=== PATIENT | male | born 1955 | race Caucasian/White ===

== ENCOUNTER 2025-01-25 17:09 | Inpatient (IN) | payer BC, MEDICARE ==
[~2025-01-25] VITALS: Ht 175.3 cm; Wt 107.4 kg
[2025-01-25] VITALS (8 sets, daily range): BP systolic 122–151; BP diastolic 66–84; PULSE 59–90; RESP 12–19; O2SAT 95–100
[~2025-01-25 17:09] MED LIST: FLEC100T2 PO; LOP25T PO; METO50TA17 PO
--- NOTE | 2025-01-25 17:14 | ELECTROCARDIOGRAPH REPORT ---
[facility] Test Date: 2025-01-25 Test Time: 17:12:03 Pat Name: EVE KAYE Department: EMERGENCY ROOM Room: [facility] 2013 Gender: M Motion Study Analyst: KIERA : 1955 Requested By: TAYLOR MARTÍNEZ Order Number: [id number] Reading MD: Dr. Adolfo Adam Measurements Intervals [place] Rate: 51 P: 6 FL: 129 QRS: 1 QRSD: 100 T: 72 QT: 427 QTc: 394 Interpretive Statements Sinus bradycardia Inferoposterior infarct, acute (LCx) Lateral infarct, acute Baseline wander in lead(s) V1,V2,V3 Electronically Signed On 01-26-2025 7:40:[address] Adolfo Adam Please click the below link to view image of tracing.
[2025-01-25 17:28] LABS: MEAN PLATELET VOLUME 7.2 FL (7.4-10.4); RED CELL DISTRIBUTION WIDTH 13.3 % (11.5-14.5)
[2025-01-25] MEDS ORDERED: heparin 10,000 units/1 ML INJ IV PRN (17:30)
[2025-01-25] MEDS ORDERED: heparin 25,000 UNIT/250ml bag 250 ML IV PRN (17:30)
--- NOTE | 2025-01-25 17:40 | RADIOLOGY REPORT ---
CLINICAL HISTORY: CP TECHNIQUE: Single view of the chest was obtained. COMPARISON: None FINDINGS: The heart size and pulmonary vasculature are normal. The lungs are clear. IMPRESSION: NO ACUTE CARDIOPULMONARY PROCESS.
[2025-01-25] MEDS ORDERED: verapamil 2.5 mg/ml inj IV ONE (17:44)
[2025-01-25] MEDS ORDERED: LIDOcaine 1% 30ml preserv. free vial ONE (17:45)
[2025-01-25] MEDS ORDERED: midazolam 1 mg/ML 2ml injection ONE ×2 (17:45→18:51)
[2025-01-25] MEDS ORDERED: iohexol 350 MG/ML 50ML vial IV ONE (17:45)
[2025-01-25] MEDS ORDERED: fentaNYL/PF 50MCG/1 ML 2ML syringe ONE ×2 (17:45→18:51)
[2025-01-25] MEDS ORDERED: heparin 1,000unit/ml 10ml vial 10 ML ONE (17:45)
[2025-01-25 17:47] LABS: APTT 24 SECONDS (22-32); INR 1.0 INR
[2025-01-25] MEDS ORDERED: nitroGLYCERIN 500mcg/5mL D5W 5 ML IV ONE (17:48)
[2025-01-25] MEDS ORDERED: mag hydrox/Alum hydrox/simeth 30ml oral suspension PO PRN (17:50)
[2025-01-25] MEDS ORDERED: magnesium hydroxide 30ml (MOM) UD suspension PO PRN (17:50)
[2025-01-25] MEDS ORDERED: morphine 4 MG/ML inj SYRINge IV PRN (17:50)
[2025-01-25] MEDS ORDERED: potassium Cl 40MEQ/1/2NS 520ml 520 ML IV PRN (17:50)
[2025-01-25] MEDS ORDERED: potassium Cl 20 mEq SR tablet PO PRN ×2 (17:50)
[2025-01-25] MEDS ORDERED: magnesium sulf-water 4G/100mL 100 ML IV PRN (17:50)
[2025-01-25] MEDS ORDERED: magnesium Cl slow-release 64mg tablet PO PRN (17:50)
[2025-01-25] MEDS ORDERED: magnesium sulf-water 2g/50mL 50 ML IV PRN (17:50)
[2025-01-25 17:56] LABS: CREATININE 0.99 MG/DL (0.60-1.10); PRO BRAIN NATRIURETIC PEPTIDE 47 PG/ML (0-125); TOTAL CARBON DIOXIDE 27.5 MMOL/L (24-32); eCRCL 71 ML/MIN; eGFR 75 ML/MIN
--- NOTE | 2025-01-25 17:57 | HISTORY AND PHYSICAL-Residence ---
History & Physical Providers to Resident Creating Document: CAESAR CHAPMAN, RES ~ History of Present Illness Primary Medical Doctor: No PCP. 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 Reason for Admit\Complaint: Chest pain History of Present Illness 69-year-old male patient presented to the hospital with chief complaint of chest pain. The patient states that he experienced chest pain approximately 30 minutes previous to arrival to the emergency department, 4/5 in intensity, without radiation, localized in the left side of the chest, described as a pressure type pain. The patient states that she was driving while he started having these symptoms and as soon as he noticed this chest pressure he decided to drive to the hospital. Associated to this chest pressure the patient states nausea. The patient denies shortness of breath, palpitations or diaphoresis. The patient endorses that he experienced these symptoms for the 1st time in his life. Upon arrival to the emergency department, the patient received one dose of nitroglycerin which improved his pain to 1/5 in intensity. The patient does not have a primary care physician. As per patient he usually goes to urgent care if he has any symptoms. Allergies: Coded Allergies: No Known Allergies (Unverified , 06/04/15) Home Medications Home Medications Active Metoprolol Tartrate 50 Mg Tablet 1 Tablet PO BID Flecainide Acetate 100 Mg Tablet 1.5 Tablet PO BID Reported Metoprolol Tartrate 25 Mg Tablet 1 Tablet PO BID Past Medical History Past Medical History As per patient atrial fibrillation for which he received two cardioversions and ablation in 2016. 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) ROS Constitutional: Denies: no symptoms reported, see HPI, chills, diaphoresis, fever, malaise, weakness, other Eyes: Denies: no symptoms reported, see HPI, pain, discharge, blurred vision, double vision, itching, photophobia, redness, tearing, other ENT: Denies: no symptoms reported, see HPI, ear pain, ear bleeding, ear discharge, hearing loss, ear ringing, nose pain, nose bleeding, nose congestion, nose discharge, throat pain, throat swelling, voice change, mouth pain, mouth bleeding, mouth swelling, other Respiratory: Denies: no symptoms reported, see HPI, cough, orthopnea, shortness of breath, SOB with exertion, SOB at rest, stridor, wheezing, hemoptysis, pain with breathing, other Cardiovascular: Reports: see HPI Gastrointestinal: Reports: see HPI Genitourinary: Denies: no symptoms reported, see HPI, burning, discharge, dysuria, frequency, flank pain, hematuria, incontinence, pain, decreased urine output, urgency, other Male Genitalia: Denies: no symptoms reported, see HPI, penile discharge, penile sore, testicular pain, testicular swelling, other Neurological: Denies: no symptoms reported, see HPI, speech problem, headache, dizziness, fainting, tingling, left sided numbness, right sided numbness, left sided weakness, right sided weakness, problems walking, unable to move lower ext, unable to move upper ext, petit mal seizures, tonic-clonic seizures, cognitive dysfunction, other Musculoskeletal: Denies: no symptoms reported, see HPI, pain, swelling, back pain, gout, joint pain, joint swelling, muscle pain, muscle swelling, muscle stiffness, neck pain, other Integumentary: Denies: no symptoms reported, see HPI, rash, itching, lesions, lumps, bruise(s), wound(s), laceration(s), dryness, change in color, other Allergic/Immunologic: Denies: no symptoms reported, see HPI, hives, itching, frequent infections, difficulty healing, other Hematologic/Lymphatic: Denies: no symptoms reported, see HPI, anemia, blood clots, easy bleeding, easy bruising, swollen glands, other Endocrine: Denies: no symptoms reported, see HPI, excessive sweating, flushing, intolerance to cold, intolerance to heat, increased hunger, increased thrist, increased urine, unexplained weight gain, unexplained weight loss, other Psychiatric: Denies: no symptoms reported, see HPI, depression, anxiety, sleeplessness, hopeless, suicidal, hallucinations, other Exam Vitals: Vital Signs Date Time Temp Pulse Resp B/P (MAP) Pulse Ox O2 Delivery O2 Flow Rate FiO2 01/25/25 17:18 98.0 56 16 121/80 94 0 Physical exam: General: Awake, alert, oriented. No acute distress. Well-developed, hydrated and well-built nourished. No anemia, Jaundice or clubbing. HEENT: Conjunctive are pink, sclerae clear, no icterus, pupil is equal in both sides, reactive to light, no ear discharge, no pharyngeal erythema or an edema. Neck: Supple, no adenopathy, thyromegaly. Trachea is midline. No JVD. Chest: Respiratory: Vesicular breath sounds. No ronchi, crepitus or wheezing. Resonance is normal upon percussion of all lung membreno. Cardiovascular: S1-S2 regular sinus rhythm and, regular rate, no gallops, no rubs, no murmurs Abdomen: No visible distention, Bowel sounds present on auscultation, on palpation: soft, nontender, no guarding, no rigidity. Extremities: No obvious deformities, no pitting edema bilaterally, capillary refill intact, peripheral pulsations are intact on both sides Neurologic: Mental status: alert and conscious, oriented to place, person and time, preserved memory, normal speech. Cranial nerves I-XII: Normal. Motor system: Preserved power, coordination, no evidenced involuntary movements, strength 5/5 in four extremities. Negative Babinski. Skin: Warm and dry. Diagnostic Data Last Recorded Lab Results: 01/25/25171601/25/251716 Diagnostic Data: Laboratory Tests Test 01/25/25 17:17 Prothrombin Time 10.5 SECONDS (9.0-12.0) INR International Normalized Ratio 1.0 INR Activated Partial Thromboplast Time 24 SECONDS (22-32) Coagulation Comments Advance Care Planning Advanced Care plannin - 30 Minutes (I spent a total of 17 minutes on reviewing various resuscitative measures/ACP with the patient at the time of admission. The patient has decided on a full code status.) Additional Plan Assessment and plan: 69-year-old male patient presented to the hospital with chief complaint of chest pain. STEMI: The patient presented to the hospital with chief complaint of chest pain, pressure type. EKG: Showing heart rate of 51, sinus rhythm, left axis deviation, ST-elevation in leads two, three, AVF consistent with inferior myocardial infarction. The patient received one dose of aspirin 325 mg. Plan: Follow-up echocardiogram. Follow-up lipid panel and A1c in a.m. Cardiology consulted, the patient has been taken to the optical laboratory manager. H/O AFib: As per patient he got cardioversion and cardiac ablation around 2015. Continue to monitor with telemetry. Code status: Full code DVT prophylaxis: Heparin Analgesia/sedation: Morphine Line/tube: PIV GI prophylaxis: None Nutrition: NPO for procedure PT: Yes Prognosis: Guarded Disposition: The patient will be admitted to PCU with telemetry, currently taken to optical laboratory manager. Caesar Steni Internal Medicine Resident [facility] Date of Service: Jan 25, 2025 Billing Provider: JAZIEL BRASHER MD Common Visit Codes: [id number] INP/OBS CARE (HIGH) Secondary Visit Codes: [id number] CARE PLAN 30 MINUTES CAESAR CHAPMAN, RES Jan 25, 2025 17:57 JAZIEL BRASHER MD Jan 27, 2025 07:38
--- NOTE | 2025-01-25 17:59 | Physician Documentation ---
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 He has no other cardiac history. He denies nausea, vomiting, cough, shortness of breath. In triage he is noted to be diaphoretic. Medication Reconciliation Allergies: Coded Allergies: No Known Allergies (Unverified , 06/04/15) Scheduled Flecainide Acetate (Flecainide Acetate), 1.5 TABLET PO BID Metoprolol Tartrate* (Lopressor tablet*), 1 TABLET PO BID, (Reported) Metoprolol Tartrate* (Metoprolol Tartrate*), 1 TABLET PO BID Past Medical History Past Medical History: Atrial Fibrillation Past Surgical History: no surgical history Alcohol Use: None Drug Use: none Lives with: Family Lives In: Home Review of Systems All Other Systems at this time: Reviewed and Negative Physical Exam Vital Signs: RN Vital Signs have been reviewed: Yes, Temperature: 98.0, Source: Temporal, Heart Rate: 56, Respiratory Rate: 16, BP: 121/80, Pulse Oximetry: 94, Weight: 102.270 Oxygen Flow Rate: 0 Physical Exam HEENT: PERRL, moist oral mucosa, EOMI Pulmonary: No respiratory distress Cardiac: RRR, no murmur, rub or gallop GI: nondistended, soft, nontender, no guarding, no rebound MSK: no deformity Skin: warm, diaphoretic, no rash Neuro: alert, nonfocal Psych: normal affect Progress Results/Orders Results/Orders Orders - TAYLOR MARTÍNEZ MD Chest,Single View (01/25/25 17:21) Monitor (01/25/25 17:11) Saline Lock (01/25/25 17:11) Oxygen (01/25/25 17:11) BMP (01/25/25 17:11) PBNP (01/25/25 17:11) Hs Troponin I W Calculations (01/25/25 17:11) Hs Troponin I W Calculations (01/25/25 19:11) Hs Troponin I W Calculations (01/25/25 20:11) Page Hospitalist (01/25/25 17:24) Nitroglycerin Sublingual Tab (Nitrostat (01/25/25 17:30) Heparin 10,000 Unit/Ml 1ml (Heparin 10,0 (01/25/25 17:30) Cbc/Diff (01/26/25 03:00) Cbc/Diff (01/27/25 03:00) Cbc/Diff (01/28/25 03:00) Cbc/Diff (01/29/25 03:00) Cbc/Diff (01/30/25 03:00) Heparin 25,000 Unit/250ml Bag (Heparin 2 (01/25/25 17:33) Completed Orders - TAYLOR MARTÍNEZ MD Chest,Single View (01/25/25 17:21) Cbc/Diff (01/25/25 17:11) Electrocardiogram (01/25/25 17:11) Aspirin 81mg Chew Tablet (Aspirin 81mg C (01/25/25:25) Heparin Drip Acs*Rph-To-Dose* (Heparin D (01/25/25:) Heparin 10,000 Unit/Ml 1ml (Heparin 10,0 (01/25/25 17:25) Pt Inr (01/25/25 17:29) PTT (01/25/25 17:29) Heparin 10,000 Unit/Ml 1ml (Heparin 10,0 (01/25/25 17:30) Heparin 25,000 Unit/250ml Bag (Heparin 2 (01/25/25 17:30) Message To Nursing (01/25/25 17:35) Verapamil Inj (Verapamil Inj) (01/25/25 17:44) Lidocaine 1% 30ml Vial (Xylocaine 1% Via (01/25/25 17:45) Midazolam 1 Mg/Ml 2ml Inj. (Versed 1 Mg/ (01/25/25 17:45) Fentanyl/Pf (Fentanyl 0.05 Mg/Ml Syringe (01/25/25 17:45) Iohexol 350mg/Ml 50ml Inj (Omnipaque 350 (01/25/25 17:45) Heparin 1,000unit/Ml 10ml Vial (Heparin (01/25/25 17:45) Iohexol 350mg/Ml 100ml (Omnipaque 350mg/ (01/25/25 17:45) Heparin 1,000 Units/Ns 500ml (Heparin 1, (01/25/25 17:45) Nitroglycerin 500mcg/5ml D5w (Nitroglyce (01/25/25 17:48) Medications Received in ER Medications (Trade) Dose Ordered Sig/Clair Route PRN Reason Start Time Stop Time Status Last Admin Dose Admin (aspirin 81MG chew tablet) 324 mg ONCE ONCE PO 01/25/25 17:25 01/25/25 17:26 DC 01/25/25 17:22 324 MG (Nitrostat SL tablet) 0.4 mg ONCE PRN SL chest pain 01/25/25 17:30 01/25/25 17:30 0.4 MG Vital Signs 01/25/25 17:18 Temp 98.0 Pulse 56 Resp 16 B/P (MAP) 121/80 Pulse Ox 94 O2 Flow Rate 0 Laboratory Tests Test 01/25/25 17:17 White Blood Count 8.8 Red Blood Count 4.83 Hemoglobin 15.0 Hematocrit 44.4 Mean Corpuscular Volume 92.0 Mean Corpuscular Hemoglobin 31.1 H Mean Corpuscular Hemoglobin Concent 33.8 Red Cell Distribution Width 13.3 Platelet Count 297 Mean Platelet Volume 7.2 L Neutrophils (%) (Auto) 43.1 Lymphocytes (%) (Auto) 42.4 Monocytes (%) (Auto) 10.8 Eosinophils (%) (Auto) 3.2 Basophils (%) (Auto) 0.5 Neutrophils # (Auto) 3.8 Lymphocytes # (Auto) 3.7 Monocytes # (Auto) 0.9 Eosinophils # (Auto) 0.3 Basophils # (Auto) 0.0 CBC Comment Prothrombin Time 10.5 INR International Normalized Ratio 1.0 Activated Partial Thromboplast Time 24 Coagulation Comments Chemistry Comments EKG/XRAY/CT/US/VASC/MRI EKG : EKG: NSR, ST elevation Additional Comment my interpretation: ST elevations in leads II, III, avF with reciprocal changes in anterior leads = acute ST elevation [place], otherwise normal sinus rhythm without blocks or other dysrhythmias Chest X-Ray : Interpreted By: self Views: 1 VIEW Indication: chest pain Lungs: normal Mediastinum: normal Ribs/Bones: normal Abdomen: normal Impression: no acute disease Medical Decision Making Additional information obtaine: N/A Findings 69 year old male with presentation concerning for STEMI. We immediately called STEMI alert, provided ASA and heparin per Dr. Sanders who was in the ER shortly to evaluate patient. Care transferred to hospitalist and Mr. Torres went immediately to logging rafter laborer after our interventions here in the ER. He required 30 minutes of critical care time apart from separately billable procedures for frequent reassessment, consultation with specialists, IV drip medication administration. The patient remained hemodynamically stable during his ER stay until he went to the logging rafter laborer. Heart Score: 7 Differential Dx:Considerations: Include: angina, aortic dissection, chest wall pain, cholelithiasis, esophageal reflux/spasm, myocardial infarction, pericarditis, pleuritis, pancreatitis, pneumonia, pneumothorax, pulmonary embolus Departure Disposition: 09 ADMITTED INPATIENT Admitted to Inpatient Unit: to hospitalist Admission Level of Care: Med/Surg Impression: Primary Impression: ST elevation TX (STEMI) Condition: Stable Referrals: NO PRIMARY CARE PROVIDER (PCP) Education Educated: Patient Educated regarding: diagnosis, treatment, prognosis, need for follow up Signature Scribe Signature: . Attestation: . TAYLOR MARTÍNEZ MD Jan 25, 2025 17:59
[2025-01-25] MEDS ORDERED: amiodarone/D5 360MG/200ML BAG 200 ML IV ONE (18:05)
--- NOTE | 2025-01-25 18:50 | CONSULTATION REPORT - RESIDENT ---
Consult Providers to CC Resident Creating Document: YAQUELIN RYDER, RES CC: NACHO STEWART MD History of Present Illness Reason for Admit\Complaint: STEMI History of Present Illness A 69-year-old male with PMH of SVT/AFib status post ablation presented to the ED in view of chest pain since 30 minutes. Patient states that he had chest discomfort in the substernal in location 4/10 in severity, pressure-like in character, with no radiation since 30 minutes prior to the ER visit. Patient states that he had associated nausea that was worse, no associated shortness of breath, diaphoresis, palpitations. Patient and his stated that he underwent cardioversions for AFib in 2016, after which he underwent ablation. Per his prior records, patient seems to have had SVT on one episode and atrial fibrillation on one episode. Patient has started to feel better after one dose of sublingual nitroglycerin. Patient received one dose of aspirin 324 mg in the ED. On further evaluation, EKG showed ST elevations in leads II, III, AVF, V6 and reciprocal changes in V1 to V3. STEMI was called, Cardiology was consulted. In view of STEMI, patient was immediately taken to the labor utilization superintendent, patient coded in catheterization lab patient received shock and chest compressions was able to attain circulation within 10 minutes. Patient coded at around 5:50 p.m. and pulse was regained at 06:02 pm. Patient was agitated after he gained consciousness, had to be sedated under the supervision of anesthesiologist for the procedure. Father of massive heart attack at the age of 63, similar history of presentation and events with the paternal uncles. Mother at the age of 70 due to heart failure. 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 No nausea, vomiting, diarrhea, constipation, hematemesis, abdominal pain, bloating, melena or fresh blood Musculoskeletal:chronmic edema. Integumentary: No change in skin, hair, nails. No swelling, bruising, abrasions Neurologic: No headache, neck pain, numbness or tingling of the extremities, weakness Psychiatric: No delusions, depression, loss of interest in normal activity or change in sleep pattern, hallucinations, suicidal ideations Endocrine: No fatigue, weakness, polydipsia, polyuria, change in appetite, heat or cold intolerance, sweating, dry skin Exam Vitals: Vital Signs Date Time Temp Pulse Resp B/P (MAP) Pulse Ox O2 Delivery O2 Flow Rate FiO2 01/25/25 17:18 98.0 56 16 121/80 94 0 General: General: Alert, awake, oriented, not in acute distress HEENT: PERRLA, no icterus, pallor, lymphadenopathy, carotid bruit Respiratory system: Bilateral vesicular breath sounds heard, no adventitious breath sounds CVS: S1-S2 heard, no murmurs/rubs/gallop GI: Soft, nontender, no organomegaly, no guarding/rigidity, bowel sounds present Neuro: No focal neurological deficits present Mental status exam: alert and consciousness, orientation, memory, speech - Cranial nerve test: Cranial nerves 2-12 intact - Motor system: Nutrition, Tone 3+, Power 5/5, no involuntary movements - Sensory system: Intact - Reflex testing: Biceps, triceps and knee reflexes 2+ - Cerebellar: Normal Extremities: No edema cyanosis clubbing/deformities Skin: Warm and dry Diagnostic Data Last Recorded Lab Results: 01/25/25 1717 01/25/25 1717 Diagnostic Data: Laboratory Tests Test 01/25/25 17:17 Prothrombin Time 10.5 SECONDS (9.0-12.0) INR International Normalized Ratio 1.0 INR Activated Partial Thromboplast Time 24 SECONDS (22-32) Coagulation Comments Additional Plan Assessment: A 69-year-old male with a past medical history of AFib/SVT s/p ablation in 2016 presented to the ED in view of chest pain. On further evaluation patient was found to have STEMI. Cardiology was consulted and patient underwent cardiac catheterization. Plan: STEMI s/p cardiac catheterization with stenting on 01/25/2025 EKG: ST elevations in two, three, AVF and V6, with reciprocal in V1 to V3 Chest x-ray: No acute cardiopulmonary findings Initial troponin negative Patient received one dose of aspirin 325 mg. Cardiac catheterization revealed: Stenosis of left circumflex Continue aspirin 81 mg and Brilinta 90 mg b.i.d., 180 mg one time dose now Sublingual nitroglycerin 0.4 mg p.r.n. for chest pain Continue IV heparin through the night Follow up with lipid panel, echo Optimization with GDM T: Carvedilol 6.125 mg b.i.d., atorvastatin 80 mg once daily EKG post catheterization, p.r.n. for chest pain and in a.m. Lifestyle modifications: Weight loss, heart healthy diet. VFib with ROSC in 10 minutes Shocked twice, received amiodarone, two rounds of CPR Continue to monitor vitals AFib/SVT s/p ablation [id number]: 2 Continue home meds Re-evaluate in a.m. for the start of Eliquis Code status: Full code Diet: Heart healthy Anticoagulation: Aspirin, Plavix Disposition: Cardiology team will continue to follow up with the patient, EKG in a.m. Yaquelin Ryder MD Internal Medicine, PGY 2 Patient seen and examined in emergency room. Subsequently underwent coronary angiography. Patient did have code blue prior to angiography resuscitated. Found to have a critical thrombotic mid circ lesion 98% with AMADO two flow successfully angioplastied and stented with 3.5/18 resolute adryan stent and post dilated to 3.75 mm with AMADO three flow. The importance of uninterrupted aspirin and Brilinta at least for one year emphasized to the patient. Sepsis Screening Reassessment Date: Jan 26, 2025 Date of Service: Jan 25, 2025 Billing Provider: NACHO STEWART MD, SIVA, RES Jan 25, 2025 18:49 NACHO STEWART MD Jan 26, 2025 16:08
[2025-01-25] MEDS: ondansetron/PF 4mg/2ml inj IV PRN (19:42)
[2025-01-25] MEDS: docusate sod 100mg capsule PO SCH (20:00)
[2025-01-25] MEDS: K and/or MAG REPLACEMENT MC SCH (20:00)
[2025-01-25] MEDS: morphine 4 MG/ML inj SYRINge IV PRN (20:08)
[2025-01-25] MEDS: heparin 10,000 units/1 ML INJ IV ONE ×2 (20:11→20:14)
[2025-01-25] MEDS: MESSAGE TO NURSING IV ONE (20:13)
[2025-01-25] MEDS: normal saline 1000ml 1,000 ML IV SCH ×2 (20:14→20:41)
[2025-01-25] MEDS: HEPARIN DRIP-CARDIAC**PHARMACIST-TO-DOSE IV ONE (20:14)
--- NOTE | 2025-01-25 20:24 | ELECTROCARDIOGRAPH REPORT ---
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
--- NOTE | 2025-01-25 20:24 | ELECTROCARDIOGRAPH REPORT ---
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 NICOLASA Sanders Measurements Intervals [place] Rate: 86 P: 75 [place]: 184 QRS: 0 QRSD: 98 T: 77 QT: 390 QTc: 467 Interpretive Statements Sinus rhythm Inferoposterior infarct, acute (LCx) ST depression V1-V3, suggest recording posterior leads Electronically Signed On 01-26-2025 16:01:[address] NICOLASA Sanders Please click the below link to view image of tracing.
[2025-01-25] MEDS: heparin 25,000 UNIT/250ml bag 250 ML IV PRN (20:29)
[2025-01-26] VITALS (23 sets, daily range): BP systolic 103–130; BP diastolic 55–70; PULSE 58–69; RESP 13–25; TEMP 97.3–97.7; O2SAT 90–98
[2025-01-26] MEDS: amiodarone/D5 360MG/200ML BAG 200 ML IV SCH (00:11)
[2025-01-26 01:33] LABS: MEAN PLATELET VOLUME 7.0 FL (7.4-10.4); RED CELL DISTRIBUTION WIDTH 13.1 % (11.5-14.5)
[2025-01-26 01:41] LABS: CHOL/HDL RATIO 7.7 (0.00-4.99); CREATININE 0.87 MG/DL (0.60-1.10); LDL CHOLESTEROL 252 MG/DL (50-100); TOTAL CARBON DIOXIDE 27.5 MMOL/L (24-32); eCRCL 81 ML/MIN; eGFR 87 ML/MIN
[2025-01-26] MEDS: MESSAGE TO NURSING IV ONE (04:04)
[2025-01-26] MEDS: magnesium sulf-water 2g/50mL 50 ML IV ONE (04:04)
--- NOTE | 2025-01-26 04:22 | CARDIOLOGY REPORT ---
DATE OF SERVICE: 01/25/2025 DICTATING PHYSICIAN: NICOLASA Sanders MD DATE OF PROCEDURE: 01/25/2025 INSPECTING ENGINEER: NICOLASA Sanders MD GENDER: Male. AGE: 69 HEIGHT: 175 cm WEIGHT: 102 kg BODY SURFACE AREA: 2.1 cm2 INDICATION: The patient is a 69-year-old male with no prior history of diabetes, hypertension, and hyperlipidemia. However, he does not have any primary care physician and does not know his cholesterol level. The patient developed sudden onset of chest pain when he returned after [employer]. He has a history of cardiac ablation around in 2016. No other cardiac history, perspiration, shortness of breath. He came to the emergency room. Immediately he was given aspirin and heparin and went into the cork slabs sawyer. As soon as he got into the cork slabs sawyer, the patient had a VFib arrest. Jeremiah Morrow was called. Chest compression was started immediately. The patient was in VFib, he was cardioverted twice. IV amiodarone and epinephrine were given, and his rhythm came back. Chest compression and immediately the patient proceeded with a cardiac catheterization. The patient did have inferolateral ST elevation. PROCEDURES DONE: 1. An ultrasound-guided right radial artery visualization and access. 2. Left heart catheterization. 3. LVG. 4. Coronary artery cineangiography. 5. PTCA stenting of the mid circumflex artery. FINDINGS: HEMODYNAMICS: Aortic systolic 84, diastolic 42, mean of 49 mmHg. LVEDP of 19 mmHg. There is no significant gradient across the aortic valve. LEFT VENTRICULOGRAM: Overall left ventricular systolic function is normal with an LV ejection fraction of 55-60% and mild inferolateral hypokinesia. CORONARY CINEANGIOGRAPHY: Left main coronary artery is a large caliber vessel with minimal luminal irregularity. LAD is a medium caliber vessel arising at the bifurcation of the left main coronary artery and courses through the anterior intraventricular groove and ends up by wrapping around the apex. Diagonal 1 is a 2 mm caliber with minimal luminal irregularity. Diagonal 2 is a 2.25 mm caliber with minimal luminal irregularity. Otherwise, the LAD is a relatively small Caliber vessel and ends at apex. Circumflex artery is a medium caliber, large vessel. It has a 98% thrombotic occlusion and it predominantly continues as a principal obtuse marginal branch which divides into 3 divisions. Right coronary artery is a medium-caliber vessel arising from the right aortic sinus, courses the right AV groove, ends at the posterior crux by dividing into PDA and a posterolateral branch. The patient has got 3 sequential narrowings in the mid RCA of 30%, 40%, and 60%. PTCA STENTING OF THE MID CIRCUMFLEX ARTERY: A 6-English XP C4 guide was used for support. Lesion crossed with PT2 moderate wire. Lesion was angioplastied with a 2.5 x 12 mm balloon at 10 atmospheres of pressure. The lesion was stented with a 3.5/18 Resolute Ernesto stent postdilated with a 3.75/12 mm noncompliant balloon. There was a mild no flow phenomenon which immediately got corrected with intra coronary nitroglycerin and verapamil. IMPRESSION: A 69-year-old male with an LV ejection fraction of 50% to 60% and mild inferolateral hypokinesia. LVEDP of 19 mmHg with no gradient across the aortic valve. Left main is normal. LAD has lesion with 20%, inimal luminal irregularities. Mid circumflex with 98% plus thrombotic lesion which successfully angioplastied and stented with a 3.5 x 18 mm Resolute Ernesto drug-eluting stent, postdilated to 3.75 mm. Mid RCA with 30%, followed by 40%, followed by 60% narrowing. RECOMMENDATIONS: Continued aggressive coronary artery disease risk factor modification, namely low-fat, low-cholesterol diet maintaining ideal body weight, keeping LDL under 55 mg/dL, and regular exercise program. NICOLASA Sanders MD TID: [id number] RECEIPT: [id number] ANGELIA/DAMON MTDD
--- NOTE | 2025-01-26 07:21 | ELECTROCARDIOGRAPH REPORT ---
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 NICOLASA Stewart Measurements Intervals [place] Rate: 68 P: 86 GA: 187 QRS: -24 QRSD: 104 T: 77 QT: 460 QTc: 490 Interpretive Statements Sinus rhythm Borderline left axis deviation Borderline low voltage, extremity leads ST elevation, consider inferior injury Borderline prolonged QT interval Electronically Signed On 01-26-2025 16:02:[address] NICOLASA Stewart Please click the below link to view image of tracing.
[2025-01-26] MEDS: aspirin 81mg, enteric-coated 1 TAB TABLET.DR PO SCH (08:38)
[2025-01-26] MEDS ORDERED: LIDOcaine 1% W/epiNEPHrine 1:100,000 20ml vial ONE (11:04)
--- NOTE | 2025-01-26 12:24 | PROGRESS NOTE- Residence ---
Progress Note - Resident Providers to CC Resident Creating Document: JHOANJHOAN BARGERCAESAR Hensley, RES ~ Antibiotic Timeout Antibiotic Ordered?: No Subjective The patient has been evaluated at bedside. The patient reports that his symptoms completely resolved. Denies chest pain, shortness of breath, palpitations. Episodes of V-tach reported last night, currently on amiodarone drip. Objective Vital Signs Date Time Temp Pulse Resp B/P (MAP) Pulse Ox O2 Delivery O2 Flow Rate FiO2 01/26/25 08:02 69 16 123/62 (82) 92 Room Air 01/26/25 03:00 98.2 01/25/25 23:00 2.0 Physical exam: General: Awake, alert, oriented. No acute distress. Well-developed, hydrated and well-built nourished. No anemia, Jaundice or clubbing. HEENT: Conjunctive are pink, sclerae clear, no icterus, pupil is equal in both sides, reactive to light, no ear discharge, no pharyngeal erythema or an edema. Neck: Supple, no adenopathy, thyromegaly. Trachea is midline. No JVD. Chest: Respiratory: Vesicular breath sounds. No ronchi, crepitus or wheezing. Resonance is normal upon percussion of all lung membreno. Cardiovascular: S1-S2 regular sinus rhythm and, regular rate, no gallops, no rubs, no murmurs Abdomen: No visible distention, Bowel sounds present on auscultation, on palpation: soft, nontender, no guarding, no rigidity. Extremities: No obvious deformities, no pitting edema bilaterally, capillary refill intact, peripheral pulsations are intact on both sides. Presence of shit in the right groin, no signs of infection or inflammation. Neurologic: Awake, alert, oriented to place person and time, able to wiggle his toes but limited movement of the lower extremities due to the presence of a sheath in the right groin from procedure. Skin: Warm and dry. Result Diagram: 01/26/2511401/26/25114 Coagulation Studies Laboratory Tests Test 01/25/25 17:17 01/25/25 19:00 01/26/25 06:02 Prothrombin Time 10.5 SECONDS (9.0-12.0) INR International Normalized Ratio 1.0 INR Activated Partial Thromboplast Time 24 SECONDS (22-32) Activated Clotting Time 176 SEC (101-148) H APTT (Heparin Protocol) 39 SECONDS (45-60) L Coagulation Comments Assessment Assessment 69-year-old male patient presented to the hospital with chief complaint of chest pain. Plan Plan STEMI: S/p coronary angiogram with stent placement in the left circumflex artery on 01/25/2025: The patient presented to the hospital with chief complaint of chest pain, pressure type. Immediately taken to the cardiac cath technician where he underwent coronary angiogram on 01/25/2025. EKG showed heart rate of 51, sinus rhythm, left axis deviation, ST-elevation in leads two, three, AVF consistent with inferior myocardial infarction. During admission. The patient received one dose of aspirin 325 mg during admission. Echocardiogram showing left ventricular ejection fraction of 65%, RVSP 15 mmHg. Normal left ventricle size and wall thickness. Overall systolic function is normal. Plan: Pending hemoglobin A1c. By Cardiology recommendation aspirin 81 mg daily. Ticagrelor 90 mg b.i.d. Atorvastatin 80 mg daily. Currently on amiodarone drip due to episodes of V-tach. Dyslipidemia: Triglycerides: 54, cholesterol: 317, LDL cholesterol: 252, HDL 41. Plan: Atorvastatin 80 mg daily. Possibly reactive leukocytosis: WBC 13.5 today. Plan: Continue to monitor CBC. H/O AFib: Chads Vasc score: 2 As per patient he got cardioversion and cardiac ablation around 2015. Continue to monitor with telemetry. The patient may require anticoagulation. The patient underwent coronary angiogram. Management as per aircraft instrument repairer. Code status: Full code DVT prophylaxis: Heparin Analgesia/sedation: Morphine Line/tube: PIV GI prophylaxis: None Nutrition: Heart healthy diet PT: Yes Prognosis: Guarded Disposition: The patient is currently in ICU. We will assume care when the patient is downgraded to PCU. Caesar Stein Internal Medicine Resident [facility] Date of Service: Jan 26, 2025 Billing Provider: JAZIEL BRASHER MD Common Visit Codes: [id number] INP/OBS CARE(HIGH) CAESAR CHAPMAN, RES Jan 26, 2025 12:24 JAZIEL BRASHER MD Jan 28, 2025 10:58
[2025-01-26] MEDS: carvedilol 6.25mg tablet PO SCH (12:41)
[2025-01-26] MEDS: OXAZEpam 15mg capsule PO PRN (13:50)
--- NOTE | 2025-01-26 14:16 | CONSULTATION REPORT - RESIDENT ---
Consult Providers to CC Resident Creating Document: EDUARDREZA KIM History of Present Illness Primary Medical Doctor: None Reason for Admit\Complaint: STEMI History of Present Illness This is a 69-year-old male patient who came into the hospital with primary complaints of chest pain. The chest pain began about 30 minutes prior to the arrival to the ED, progressively increased in nature, prominent on the left side of the chest and pressure in type. Due to the progressively worsening nature of the symptoms, he came into the ER and was found to have a STEMI. He has never had prior similar symptoms or prior cardiac interventions. He was taken to the laboratory coordinator immediately and just prior to the intervention, the patient went into VFib and had to be defibrillated twice but then soon went into PEA due to which chest compressions had begun. Within a span of 10 minutes, the patient had ROSC. Due to no compromise in his airway, it was decided to not intubate the patient and the catheterization had begun. He was found to have a complete LCX occlusion which was appropriately stented by Dr. Sanders and was transferred back to the ICU for further monitoring. Allergies: Coded Allergies: No Known Allergies (Unverified , 06/04/15) Home Medications Home Medications Active Metoprolol Tartrate 50 Mg Tablet 1 Tablet PO BID Flecainide Acetate 100 Mg Tablet 1.5 Tablet PO BID Reported Metoprolol Tartrate 25 Mg Tablet 1 Tablet PO BID Past Medical History Past Medical History AFib status post cardioversion and ablation Past Surgical History Surgical History Comment No significant past surgical history Past Social History Social History Comment Lifetime nonsmoker. Denies alcohol or illicit drug abuse. Lives at home with his family. Ambulates independently. ROS ROS As stated above in the HPI, otherwise all systems are reviewed and negative. Exam Vitals: Vital Signs Date Time Temp Pulse Resp B/P (MAP) Pulse Ox O2 Delivery O2 Flow Rate FiO2 01/26/25 12:00 63 20 113/63 (80) 93 Room Air 01/26/25 03:00 98.2 01/25/25 23:00 2.0 General: General: Awake and Alert, no acute distress. HEENT: Conjunctiva pink, Sclera clear, Mucus Membranes moist. Resp: Unlabored. Lungs clear to auscultation bilaterally. Heart: Regular Rate and rhythm, normal S1 and S2 without murmur, rub or gallop. Abdomen: Soft and non tender no organomegaly Extremities: No cyanosis,clubbing or edema. DISTRIBUTION OPERATIONS MANAGER: Alert, oriented x4. No cranial nerve deficits. Troponin nutrition within normal limits. No motor or sensory deficits. No abnormal movements. Skin: Warm and Dry. Diagnostic Data Last Recorded Lab Results: 01/26/25 01101/26/25 0115 Diagnostic Data: Laboratory Tests Test 01/25/25 17:17 01/26/25 06:02 01/26/25 10:03 Prothrombin Time 10.5 SECONDS (9.0-12.0) INR International Normalized Ratio 1.0 INR Activated Partial Thromboplast Time 24 SECONDS (22-32) APTT (Heparin Protocol) 39 SECONDS (45-60) L Coagulation Comments Activated Clotting Time 124 SEC (101-148) Additional Plan 1. STEMI status post PCI: Initial EKG revealed ST elevations in two three AVF with reciprocal ST depressions in anterior leads between V1 to V3 Occluded LCX On aspirin 81 mg and Brilinta 90 mg b.i.d.. Atorvastatin 80 mg daily. NTG p.r.n. 0.4 mg for chest pain. Coreg 6.25 mg b.i.d. Chest pain resolved since procedure Continue telemetry monitoring 2. VFib and cardiac arrest: Resolved Status post two cycles of BLS to ROSC Secondary to acute ischemic heart disease Two episodes of 15 sec V-tach last night, self-limited On amiodarone drip. Unlikely to require long-term amiodarone drip as per Cardiology Currently in sinus rhythm with a occasional asymptomatic bradycardia 3. Hyperlipidemia: Total cholesterol 317, LDL 252 Goal less than 70 On atorvastatin 80 mg daily Disposition: Continue management as per cardiology team and hospitalist team. Patient was transferred to ICU due to cardiac arrest and for close monitoring. He has remained stable overnight with no acute complications. The sheath has been removed today afternoon after ACT came out to be normal. Hence, heparin was also discontinued. Amiodarone also has been discontinued. Patient can be transferred out of ICU to the floor when cardiology team clears. Lines: PIV Code status: Full code Diet: Heart healthy Annemarie Atkins PGY3, Internal medicine resident Date of Service: Jan 26, 2025 Billing Provider: KAILA MAYNARD MD, DEEPANJALI, REZA Jan 26, 2025 14:16
--- NOTE | 2025-01-26 16:09 | PROGRESS NOTE- Residence ---
Progress Note - Resident Providers to CC Resident Creating Document: PRINCE RYDER RES CC: NACHO STEWART MD ~ Antibiotic Timeout Antibiotic Ordered?: Yes Subjective The patient has been evaluated at bedside. Patient had four beats of V-tach around this morning at 3:00 a.m. patient was started on IV amiodarone drip. The femoral sheath was taken out today. Objective Vital Signs Date Time Temp Pulse Resp B/P (MAP) Pulse Ox O2 Delivery O2 Flow Rate FiO2 01/26/25 12:00 63 20 113/63 (80) 93 Room Air 01/26/25 03:00 98.2 01/25/25 23:00 2.0 Result Diagram: 01/26/2511401/26/25 011 General: Alert, awake, oriented, not in acute distress HEENT: PERRLA, no icterus, pallor, lymphadenopathy, carotid bruit Respiratory system: Bilateral vesicular breath sounds heard, no adventitious breath sounds CVS: S1-S2 heard, no murmurs/rubs/gallop GI: Soft, nontender, no organomegaly, no guarding/rigidity, bowel sounds present Neuro: No focal neurological deficits present Mental status exam: alert and consciousness, orientation, memory, speech - Cranial nerve test: Cranial nerves 2-12 intact - Motor system: Nutrition, Tone 3+, Power 5/5, no involuntary movements - Sensory system: Intact - Reflex testing: Biceps, triceps and knee reflexes 2+ - Cerebellar: Normal Extremities: Site of femoral approach investigated-clean and intact, no hematoma. No edema cyanosis clubbing/deformities Skin: Warm and dry Coagulation Studies Laboratory Tests Test 01/25/25 17:17 01/26/25 06:02 01/26/25 10:03 Prothrombin Time 10.5 SECONDS (9.0-12.0) INR International Normalized Ratio 1.0 INR Activated Partial Thromboplast Time 24 SECONDS (22-32) APTT (Heparin Protocol) 39 SECONDS (45-60) L Coagulation Comments Activated Clotting Time 124 SEC (101-148) Assessment Assessment A 69-year-old male with a past medical history of AFib/SVT s/p ablation in 2016 presented to the ED in view of chest pain. On further evaluation patient was found to have STEMI. Cardiology was consulted and patient underwent cardiac catheterization. Patient coded before the procedure in the labview programmer with resuscitation within 10 minutes. Patient had four rounds of V-tach this morning. Plan Plan STEMI s/p cardiac catheterization with stenting on 01/25/2025 EKG on admission: ST elevations in II, III, AVF, V5, V6, with reciprocal in V1 to V3 EKG on 01/26/2025: Normal sinus rhythm, ST elevations resolved Echo: EF: 65%, Continue aspirin 81 mg and Brilinta 90 mg b.i.d. Sublingual nitroglycerin 0.4 mg p.r.n. for chest pain Optimization with GDM T: Carvedilol 6.125 mg b.i.d., atorvastatin 80 mg once daily Lifestyle modifications: Weight loss, heart healthy diet, exercise Outpatient cardiology follow up, repeat echo in two months VFib with ROSC in 10 minutes Episode of V-tach (4 runs) IV amiodarone, discontinue after this packet is done Continue to monitor magnesium, maintain magnesium levels greater than two Continue to monitor vitals AFib/SVT s/p ablation [id number]: 2 Continue home meds Code status: Full code Diet: Heart healthy Anticoagulation: Aspirin, Plavix DVT prophylaxis: Eliquis Disposition: Cardiology team will continue to follow up with the patient rPince Ryder MD Internal Medicine, PGY 2 Date of Service: Jan 26, 2025 Billing Provider: NACHO STEWART MD, SIVA, RES Jan 26, 2025 16:09 NACHO STEWART MD Jan 26, 2025 16:22
--- NOTE | 2025-01-26 16:11 | PROGRESS NOTE ---
Progress Note Cardiology Providers to CC ~ Subjective Subjective Patient seen and examined this morning and afternoon. The sheath was removed this morning. No right groin hematoma. Patient having no chest pain or shortness of breath. Objective Result Diagram: 01/26/2511401/26/25114 Objective General: Normal body habitus, no acute distress, HEENT: Sclerae clear, PERRL, gums without lesions or bleeding, oropharynx clear without erythema or exudate. Neck: Supple without enlargement of the thyroid, or lymphadenopathy, Chest: Normal size and shape, no tenderness, nonlabored breathing, Breath sounds clear to auscultation. Heart: Regular in rate and rhythm, S1 and S2 normal, no S3-S4 or murmurs. Abdomen: Soft, nontender, no organomegaly, bowel sounds present. Extremities: No edema cyanosis or clubbing. Coagulation Studies Laboratory Tests Test 01/25/25 17:17 01/26/25 06:02 01/26/25 10:03 Prothrombin Time 10.5 SECONDS (9.0-12.0) INR International Normalized Ratio 1.0 INR Activated Partial Thromboplast Time 24 SECONDS (22-32) APTT (Heparin Protocol) 39 SECONDS (45-60) L Coagulation Comments Activated Clotting Time 124 SEC (101-148) Problem\Assessment\Plan Additional Plan 1. STEMI s/p cardiac catheterization with stenting on 01/25/2025 EKG: ST elevations in two, three, AVF and V6, with reciprocal in V1 to V3 Chest x-ray: No acute cardiopulmonary findings Initial troponin negative Coronary angiography showed left main normal, lad mild disease, mid circumflex 98% thrombotic occlusion Successfully angioplastied and stented with 3.5/18 resolute adryan stent post dilated 3.75 mm with AMADO three flow. RCA moderate disease. Importance of uninterrupted aspirin and Brilinta at least for any emphasized to the patient. 2. VFib prior to coronary angiography, cardioverted. Short nonsustained VT in a.m. treated with IV magnesium sulfate. No recurrence. Keep magnesium above two continue beta blockers IV amiodarone will be stopped. No plans to give p.o. amiodarone unless there is recurrence of arrhythmias. 3. History of AFib/SVT s/p ablation No recurrence since ablation. 4.? Hyperlipidemia recommend statins. Patient counseled on diet weight loss and exercise program. Follow up with Dr. Ella SANTA in 1-2 months. NACHO STEWART MD Jan 26, 2025 16:11
[2025-01-26] MEDS ORDERED: NO HOME MEDS (16:56)
--- NOTE | 2025-01-26 16:56 | CARDIOLOGY REPORT ---
APPROVED REPORT EXAM: Comprehensive 2D, Doppler, and color-flow Echocardiogram. Patient Location: 2014A Blood Pressure: 115/59 mmHg Heart Rate: 70 bpm Indications Chest Pain S/P Angioplasty w/Stent x 1, (01/25/25) S/P CODE BLUE (01/25/25) Ablation (2013) Atrial Fibrillation WARM IN: BV. Marilyn MD NO Previous ECHO 2D Dimensions LA Diam 2.7 cm IVSd 1.1 (0.7-1.1cm) LVDd 3.9 cm PWd 0.9 (0.7-1.1cm) IVSs 1.3 (0.8-1.2cm) LVDs 2.5 (2.5-4.0cm) PWs 1.2 (0.8-1.2cm) LVOT Diameter 2.24 (1.8-2.4cm) LVEF(%) 65.6 (>50%) Ao Asc Diam. 3.23 cm IVC 15.04 mm FS (%) 35.5 % SV 42.4 ml CO 3.0 L/min M-Mode Dimensions Left Atrium(MM) 3.89 (2.5-4.0cm) Aortic Root 3.30 (2.2-3.7cm) Aortic Cusp Exc 2.17 (1.5-2.0cm) MV EPSS 0.3 (<0.5cm) Aortic Valve AoV Peak Ishaan. 120.8 cm/s AoV VTI 23.6 cm AO Peak GR. 5.8 mmHg AO Mean GR. 4 mmHg LVOT VTI 22.25 cm LVOT Peak Ishaan. 103.5 cm/s SAPNA(VTI)/BSA 3.72 cm2/m2 SAPNA (VTI) 3.72 cm2 AV DI 0.94 % Mitral Valve MV E Velocity 87.6 cm/s MV Peak Gr. 3 mmHg MV DECEL TIME 188 ms MV A Velocity 57.8 cm/s MV PHT 72 ms E/A Ratio 1.5 MVA (PHT) 3.06 cm2 MV VMax 83.9 cm/s TDI Lateral E' P. V 9.59 cm/s E/Lateral E' 9.1 Tricuspid Valve TR P. Velocity 107 cm/s RAP ESTIMATE 10 mmHg TR Peak Gr. 5 mmHg RVSP 15 mmHg LEFT VENTRICLE Normal LV size and wall thickness. Overall systolic function is normal. LVEF is 65%. RIGHT VENTRICLE RV is normal size and function. ATRIA The left atrium size is normal. AORTIC VALVE Trileaflet AV appears mildly sclerotic without stenosis. No insufficiency. MITRAL VALVE Mitral valve leaflets are mildly thickened with mild annular calcification. No stenosis. TRICUSPID VALVE Tricuspid valve is grossly normal in structure with trace regurgitation. PULMONIC VALVE Pulmonic valve is grossly normal in structure with physiologic insufficiency. GREAT VESSELS The aortic root is normal in size. The ascending aorta is normal in size. The IVC is normal in size and collapses >50% with inspiration. PERICARDIUM Normal pericardium. No effusion. Other Information Study Quality: Adequate
[2025-01-27 02:00] VITALS: BP 118/66; PULSE 70; RESP 23; TEMP 97.7; O2SAT 95
[2025-01-27 06:00] VITALS: BP 110/67; PULSE 67; RESP 14; TEMP 97.2; O2SAT 94
[2025-01-27 06:46] LABS: MEAN PLATELET VOLUME 7.5 FL (7.4-10.4); RED CELL DISTRIBUTION WIDTH 13.7 % (11.5-14.5)
[2025-01-27 07:07] LABS: CREATININE 0.84 MG/DL (0.60-1.10); TOTAL CARBON DIOXIDE 29.8 MMOL/L (24-32); eCRCL 84 ML/MIN; eGFR > 90 ML/MIN
[2025-01-27 08:15] VITALS: RESP 16; O2SAT 94
[2025-01-27] MEDS ORDERED: CARV6.253 PO (08:45)
[2025-01-27] MEDS ORDERED: ASPI-1071 PO (08:45)
[2025-01-27] MEDS ORDERED: APIX5TAB3 PO (08:45)
[2025-01-27] MEDS ORDERED: TICA90TA PO (08:45)
[2025-01-27] MEDS ORDERED: PANT-47 PO (08:45)
[2025-01-27] MEDS ORDERED: ATOR20TA66 PO (08:45)
[2025-01-27] MEDS ORDERED: MAGN500C4 PO (08:45)
[2025-01-27] MEDS ORDERED: NITR0.4T51 SL (08:45)
[2025-01-27 11:00] VITALS: BP 106/62; PULSE 66; RESP 14; TEMP 97.5; O2SAT 95
--- NOTE | 2025-01-27 18:05 | DISCHARGE SUMMARY-Residence ---
Discharge Summary Providers to CC Resident Creating Document: JUVENAL DUDLEY RES ~ Discharge Summary Admission Diagnosis: Chest pain Hospital Course DATE OF ADMISSION: 01/25/25 DATE OF DISCHARGE:01/27/25 Imaging- Chest x-ray- NO ACUTE CARDIOPULMONARY PROCESS. Echocardiogram- LEFT VENTRICLE Normal LV size and wall thickness. Overall systolic function is normal. LVEF is 65%. RIGHT VENTRICLE RV is normal size and function. ATRIA The left atrium size is normal. AORTIC VALVE Trileaflet AV appears mildly sclerotic without stenosis. No insufficiency. MITRAL VALVE Mitral valve leaflets are mildly thickened with mild annular calcification. No stenosis. TRICUSPID VALVE Tricuspid valve is grossly normal in structure with trace regurgitation. PULMONIC VALVE Pulmonic valve is grossly normal in structure with physiologic insufficiency. GREAT VESSELS The aortic root is normal in size. The ascending aorta is normal in size. The IVC is normal in size and collapses >50% with inspiration. PERICARDIUM Normal pericardium. No effusion. Discharge Diagnosis\Comment: STEMI H/O AFib Dyslipidemia reactive leukocytosis Operations\Procedures: Cardiac catheterization and stent placement. Consultants: Cardiology Complications: None Condition on DC: Stable New Medications: Magnesium Oxide (Magnesium) 500 Mg Capsule 500 MG PO DAILY for 30 Days, #30 CAP Pantoprazole Sodium (PROTONIX tablet) 40 Mg Tablet.dr 40 MG PO DAILY for 14 Days, #14 TAB.SR Apixaban (Eliquis) 5 Mg Tablet 5 MG PO BID, #60 TAB Aspirin (Ecotrin*) 81 Mg Tablet.dr 1 TAB PO DAILY, #30 TAB.SR 1 Refill Atorvastatin Calcium (Atorvastatin Calcium) 20 Mg Tablet 80 MG PO DAILY, #120 TAB 1 Refill Carvedilol (Carvedilol) 6.25 Mg Tablet 6.25 MG PO BID, #60 TAB Nitroglycerin SL* (Nitrostat SL*) 0.4 Mg Tablet 0.4 MG SL ONCE PRN for chest pain, #7 TAB Ticagrelor (Brilinta) 90 Mg Tablet 90 MG PO BID, #60 TAB 1 Refill Continued Medications: Home Med List (No Home Medications) Each Discharge Summary: 69-year-old male patient presented to the hospital with chief complaint of chest pain. The patient stated that he experienced chest pain approximately 30 minutes previous to arrival to the emergency department, 4/5 in intensity, without radiation, localized in the left side of the chest, described as a pressure type pain. The patient stated that he was driving while he started having these symptoms and as soon as he noticed this chest pressure he decided to drive to the hospital. Associated to this chest pressure the patient states nausea. The patient denies shortness of breath, palpitations or diaphoresis. The patient endorses that he experienced these symptoms for the 1st time in his life. Upon arrival to the emergency department, the patient received one dose of nitroglycerin which improved his pain to 1/5 in intensity. Course during the hospital stay- Patient was diagnosed with STEM for which he was immediately taken to the [facility] where he underwent coronary angiogram on 01/25/2025. EKG showed heart rate of 51, sinus rhythm, left axis deviation, ST-elevation in leads two, three, AVF consistent with inferior myocardial infarction. During admission.The patient received one dose of aspirin 325 mg during admission. Echocardiogram showing left ventricular ejection fraction of 65%, RVSP 15 mmHg. Normal left ventricle size and wall thickness. Overall systolic function is normal. Patient had an episode of V-tach(4 runs) the next day for which Cardiology recommended IV amiodarone drip. And recommended to maintain his magnesium levels greater than 2. Which the patient did maintain during his hosp ital stay. As per cardiology recommendations we continued aspirin 81 mg and Brilinta 90 mg b.i.d. Sublingual nitroglycerin 0.4 mg p.r.n. for chest pain Optimization with GDM T: Carvedilol 6.125 mg b.i.d., atorvastatin 80 mg once daily Lifestyle modifications weight loss, exercise was discussed with the patient and the patient was advised outpatient cardiology follow-up and repeat echo in 2 months. Patient's condition improved significantly during the hospital stay. He denied any other complaints of chest pain, shortness of breath, palpitations. Patient was stable at the time of discharge. Vital Signs Date Time Temp Pulse Resp B/P (MAP) Pulse Ox O2 Delivery O2 Flow Rate FiO2 01/27/25 11:00 97.5 66 14 106/62 (77) 95 Room Air 01/27/25 08:15 2.0 Laboratory Tests Test 01/25/25 18:33 01/25/25 19:00 01/26/25 01:15 01/26/25 06:02 Activated Clotting Time 135 SEC 176 SEC White Blood Count 13.5 X10'3 Red Blood Count 4.23 X10'6 Hemoglobin 13.5 g/dl Hematocrit 38.7 % Mean Corpuscular Volume 91.4 FL Mean Corpuscular Hemoglobin 31.8 PG Mean Corpuscular Hemoglobin Concent 34.8 g/dL Red Cell Distribution Width 13.1 % Platelet Count 234 X10'3 Mean Platelet Volume 7.0 FL Neutrophils (%) (Auto) 88.2 % Lymphocytes (%) (Auto) 5.4 % Monocytes (%) (Auto) 6.1 % Eosinophils (%) (Auto) 0 % Basophils (%) (Auto) 0.3 % Neutrophils # (Auto) 11.9 X10'3 Lymphocytes # (Auto) 0.7 X10'3 Monocytes # (Auto) 0.8 X10'3 Eosinophils # (Auto) 0.0 X10'3 Basophils # (Auto) 0.0 X10'3 CBC Comment APTT (Heparin Protocol) 96 SECONDS 39 SECONDS Coagulation Comments Sodium Level 138 MMOL/L Potassium Level 4.8 MMOL/L Chloride Level 105 MMOL/L Carbon Dioxide Level 27.5 MMOL/L Anion Gap 6 Blood Urea Nitrogen 18 MG/DL Creatinine 0.87 MG/DL Estimated GFR/1.73 m2 87 ML/MIN BUN/Creatinine Ratio 20.7 Glucose Level 158 MG/DL Calcium Level 7.7 MG/DL Magnesium Level 1.8 MG/DL Total Bilirubin 0.3 MG/DL Aspartate Amino Transf (AST/SGOT) 179 U/L Alanine Aminotransferase (ALT/SGPT) 71 U/L Alkaline Phosphatase 57 IU/L Total Protein 6.6 G/DL Albumin 3.2 G/DL Globulin 3.4 G/DL Albumin/Globulin Ratio 0.9 Triglycerides Level 54 MG/DL Cholesterol Level 317 MG/DL LDL Cholesterol 252 MG/DL HDL Cholesterol 41 MG/DL Cholesterol/HDL Ratio 7.7 Chemistry Comments Test 01/26/25 09:05 01/26/25 10:03 01/27/25 05:56 Magnesium Level 2.5 MG/DL 2.6 MG/DL Activated Clotting Time 124 SEC White Blood Count 10.2 X10'3 Red Blood Count 3.91 X10'6 Hemoglobin 12.4 g/dl Hematocrit 36.0 % Mean Corpuscular Volume 92.1 FL Mean Corpuscular Hemoglobin 31.7 PG Mean Corpuscular Hemoglobin Concent 34.4 g/dL Red Cell Distribution Width 13.7 % Platelet Count 191 X10'3 Mean Platelet Volume 7.5 FL Neutrophils (%) (Auto) 76.3 % Lymphocytes (%) (Auto) 13.9 % Monocytes (%) (Auto) 9.5 % Eosinophils (%) (Auto) 0.1 % Basophils (%) (Auto) 0.2 % Neutrophils # (Auto) 7.8 X10'3 Lymphocytes # (Auto) 1.4 X10'3 Monocytes # (Auto) 1.0 X10'3 Eosinophils # (Auto) 0.0 X10'3 Basophils # (Auto) 0.0 X10'3 CBC Comment Sodium Level 140 MMOL/L Potassium Level 4.4 MMOL/L Chloride Level 106 MMOL/L Carbon Dioxide Level 29.8 MMOL/L Anion Gap 4 Blood Urea Nitrogen 18 MG/DL Creatinine 0.84 MG/DL Estimated GFR/1.73 m2 > 90 ML/MIN BUN/Creatinine Ratio 21.4 Glucose Level 116 MG/DL Hemoglobin A1c 5.7 % Calcium Level 7.8 MG/DL Total Bilirubin 1.2 MG/DL Aspartate Amino Transf (AST/SGOT) 197 U/L Alanine Aminotransferase (ALT/SGPT) 71 U/L Alkaline Phosphatase 49 IU/L Total Protein 6.2 G/DL Albumin 2.9 G/DL Globulin 3.3 G/DL Albumin/Globulin Ratio 0.9 Chemistry Comments Physical examination of the patient during the time of discharge- General: Awake, alert, oriented. No acute distress. Well-developed, hydrated and well-built nourished. No anemia, Jaundice or clubbing. HEENT: Conjunctive are pink, sclerae clear, no icterus, pupil is equal in both sides, reactive to light, no ear discharge, no pharyngeal erythema or an edema. Neck: Supple, no adenopathy, thyromegaly. Trachea is midline. No JVD. Chest: Respiratory: Vesicular breath sounds. No ronchi, crepitus or wheezing. Resonance is normal upon percussion of all lung membreno. Cardiovascular: S1-S2 regular sinus rhythm and, regular rate, no gallops, no rubs, no murmurs Abdomen: No visible distention, Bowel sounds present on auscultation, on palpation: soft, nontender, no guarding, no rigidity. Extremities: No obvious deformities, no pitting edema bilaterally, capillary refill intact, peripheral pulsations are intact on both sides Neurologic: Mental status: alert and conscious, oriented to place, person and time, preserved memory, normal speech. Cranial nerves I-XII: Normal. Motor system: Preserved power, coordination, no evidenced involuntary movements, strength 5/5 in four extremities. Negative Babinski. Skin: Warm and dry. Medications given to the patient at the of discharge- New Medications: Magnesium Oxide (Magnesium) 500 Mg Capsule Pantoprazole Sodium (PROTONIX tablet) 40 Mg Tablet. Apixaban (Eliquis) 5 Mg Tablet Aspirin (Ecotrin*) 81 Mg Tablet. Atorvastatin Calcium 20 Mg Tablet Carvedilol 6.25 Mg Tablet Nitroglycerin SL* (Nitrostat SL*) 0.4 Mg Tablet Ticagrelor (Brilinta) 90 Mg Tablet Continued Medications: Home Med List (No Home Medications) Each Additional instructions by the doctor at the of discharge- You had stent placed in the left circumflex artery and you will require uninterrupted anticoagulation with Brilinta and aspirin until you follow up with your compliance review officer Dr Sanders. Importance of uninterrupted aspirin and Brilinta emphasized. Follow up with Dr. Ella SANTA in 1-2 months. Continue statins and magnesium. Continue the medications as prescribed, if condition worsens call 911 or go to the nearest ER immediately. *Problems/Diagnosis: (1) NSTEMI (non-ST elevated myocardial infarction) Total Time Spent on D/C: > 30 Minutes Date of Service: Jan 27, 2025 Billing Provider: JAZIEL BRASHER MD Common Visit Codes: 23657-LUQ/OBS DISCH DAY >30min JUVENAL DUDLEY, REZA Jan 27, 2025 18:05 JAZIEL BRASHER MD Jan 28, 2025 11:00
== END 2025-01-27 15:35 | disposition home or self-care (01) | DRG 321 ==
LOC: ER 17:09 → CICU 2S 17:52 → PCU 3S 01-26 20:04
PROVIDERS: ADMIT Internal Medicine; ATTEND Internal Medicine
PROC: 5A12012 Performance of Cardiac Output, Single, Manual (ICD-10-PCS; 2025-01-25)
PROC: 4A023N7 Measurement of Cardiac Sampling and Pressure, Left Heart, Percutaneous Approach (ICD-10-PCS; 2025-01-25)
PROC: B2111ZZ Fluoroscopy of Multiple Coronary Arteries using Low Osmolar Contrast (ICD-10-PCS; 2025-01-25)
PROC: B2151ZZ Fluoroscopy of Left Heart using Low Osmolar Contrast (ICD-10-PCS; 2025-01-25)
PROC: 027034Z Dilation of Coronary Artery, One Artery with Drug-eluting Intraluminal Device, Percutaneous Approach (ICD-10-PCS; principal; 2025-01-25 18:10)
DX: I21.29 ST elevation (STEMI) myocardial infarction involving other sites (principal); I46.2 Cardiac arrest due to underlying cardiac condition; I49.01 Ventricular fibrillation; I47.20 Ventricular tachycardia, unspecified; I48.91 Unspecified atrial fibrillation; E78.5 Hyperlipidemia, unspecified; Z79.899 Other long term (current) drug therapy
CPT/HCPCS: 92950; 93306; 93458; 99285; C9606; 36415; 71045; 76937; 80048; 80053; 80061; 83036; 83735; 83880; 84484; 85025; 85347; 85610; 85730; 87081; 93005; 99152; 99153; A4618; A6258; A6449; C1725; C1751; C1769; C1874; G0378; J0282; J1644; J2003; J2250; J2270; J2405; J3010; J3490; J7030; Q9967

== ENCOUNTER 2025-03-20 17:53 | Emergency (ER) | payer MEDICARE, OTHER ==
[~2025-03-20] VITALS: Ht 175.3 cm; Wt 96.8 kg
[~2025-03-20 17:53] MED LIST changes: +APIX5TAB3 PO; +ASPI-1071 PO; +ATOR20TA66 PO; +CARV6.253 PO; -FLEC100T2 PO; -LOP25T PO; +MAGN500C4 PO; -METO50TA17 PO; +NITR0.4T51 SL; +NO HOME MEDS; +PANT-47 PO; +TICA90TA PO
--- NOTE | 2025-03-20 18:05 | ELECTROCARDIOGRAPH REPORT ---
[facility] Test Date: 2025-03-20 Test Time: 18:04:06 Pat Name: EVE KAYE Department: [facility]-ER Patient ID: [facility]-[id number] Room: Gender: M [employer] Work[employer] Helper: : 1955 Requested By: KAT BHAKTA Order Number: [id number] Reading MD: Measurements Intervals [place] Rate: 59 P: 24 WY: 129 QRS: -38 QRSD: 105 T: -35 QT: 403 QTc: 400 Interpretive Statements Sinus bradycardia Left axis deviation Low voltage, precordial leads Nonspecific T abnormalities, inferior leads Baseline wander in lead(s) I,II,aVR Please click the below link to view image of tracing.
--- NOTE | 2025-03-20 18:32 | RADIOLOGY REPORT ---
CHEST RADIOGRAPH INDICATION: CP TECHNIQUE: DI CHEST,SINGLE VIEW Comparison: None FINDINGS: The cardiac silhouette is unremarkable. The lungs demonstrate no pulmonary airspace consolidation. The pulmonary vasculature is unremarkable. There is no pleural effusion. There is no pneumothorax. Aortic atherosclerotic disease. IMPRESSION: No pulmonary airspace consolidation.
[2025-03-20 19:18] LABS: MEAN PLATELET VOLUME 7.7 FL (7.4-10.4); RED CELL DISTRIBUTION WIDTH 14.7 % (11.5-14.5)
[2025-03-20 19:37] LABS: CREATININE 1.06 MG/DL (0.60-1.10); PRO BRAIN NATRIURETIC PEPTIDE 1021 PG/ML (0-125); TOTAL CARBON DIOXIDE 31.9 MMOL/L (24-32); eCRCL 67 ML/MIN; eGFR 69 ML/MIN
--- NOTE | 2025-03-20 19:53 | Physician Documentation ---
History of Present Illness ~ Chief Complaint: Chest Pain Stated Complaint: CHEST PAIN Time Seen by MD: 19:50 Primary Medical Doctor: None HPI Patient presents to the emergency room for evaluation of chest pain. Patient has history of coronary artery disease with stent placement this past January after codeine. He states the pain today did not feel the same as the pain at that time. Patient states she was sitting watching TV and again in the car when he noticed some right lower chest pain radiating into his back. No current symptoms. Medication Reconciliation Allergies: Coded Allergies: No Known Allergies (Unverified , 06/04/15) Scheduled Apixaban (Eliquis), 5 MG PO BID Aspirin (Ecotrin*), 1 TAB PO DAILY Atorvastatin Calcium (Atorvastatin Calcium), 80 MG PO DAILY Carvedilol (Carvedilol), 6.25 MG PO BID Magnesium Oxide (Magnesium), 500 MG PO DAILY Pantoprazole Sodium (PROTONIX tablet), 40 MG PO DAILY Ticagrelor (Brilinta), 90 MG PO BID Scheduled PRN Nitroglycerin SL* (Nitrostat SL*), 0.4 MG SL ONCE PRN for chest pain Miscellaneous Medications Home Med List (No Home Medications), (Reported) Past Medical History Past Medical History: Atrial Fibrillation Past Surgical History: no surgical history Patient History: FH: CHF (congestive heart failure) MOTHER (Mother with a heart failure at the age of 70s), , Age: 60 years and older FH: heart attack FATHER (Father at the age of 5353 year old due to heart attack), , Age: 50's - 60 Alcohol Use: None Drug Use: none Lives with: Family Lives In: Home Occupation: retired Review of Systems ROS All review of systems negative except as per HPI Physical Exam Vital Signs: Temperature: 98.3, Source: Oral, Heart Rate: 60, Respiratory Rate: 16, BP: 149/79, Pulse Oximetry: 100, Weight: 96.800 Oxygen Flow Rate: 0 Physical Exam General: Patient is awake, alert, oriented x4 in no acute distress and well appearing.~ Head: Normocephalic and atraumatic. Eyes: Conjunctival normal. EOMI. PERRL. ENT: Mucous membranes moist. Neck: Supple, trachea is midline. Chest: Clear to auscultation bilaterally without rales, rhonchi, or wheezes. There is no accessory muscle use or retractions. Cardiac: RRR without murmurs, gallops, or rubs. Progress Results/Orders Results/Orders Completed Orders - LOPEZ DYER MD Apixaban 2.5mg Tablet (Eliquis 2.5mg Tab (03/20/25 20:05) Ticagrelor Tablet (Brilinta Tablet) (03/20/25 20:05) Vital Signs 03/20/25 17:58 Temp 98.3 Pulse 60 Resp 16 B/P (MAP) 149/79 Pulse Ox 100 O2 Flow Rate 0 Laboratory Tests Test 03/20/25 18:41 03/20/25 20:10 White Blood Count 6.1 Red Blood Count 4.20 L Hemoglobin 12.8 L Hematocrit 38.5 L Mean Corpuscular Volume 91.6 Mean Corpuscular Hemoglobin 30.5 Mean Corpuscular Hemoglobin Concent 33.3 Red Cell Distribution Width 14.7 H Platelet Count 263 Mean Platelet Volume 7.7 Neutrophils (%) (Auto) 50.8 Lymphocytes (%) (Auto) 28.6 Monocytes (%) (Auto) 10.2 Eosinophils (%) (Auto) 9.7 H Basophils (%) (Auto) 0.7 Neutrophils # (Auto) 3.1 Lymphocytes # (Auto) 1.7 Monocytes # (Auto) 0.6 Eosinophils # (Auto) 0.6 Basophils # (Auto) 0.0 CBC Comment Sodium Level 140 Potassium Level 4.6 Chloride Level 104 Carbon Dioxide Level 31.9 Anion Gap 4 L Blood Urea Nitrogen 15 Creatinine 1.06 Estimated GFR/1.73 m2 69 BUN/Creatinine Ratio 14.2 Glucose Level 101 Calcium Level 8.9 Troponin I High Sensitivity 50 53 Pro-B-Type Natriuretic Peptide 1021 H Albumin 3.5 Chemistry Comments Troponin I High Sens Percent Delta 6 Troponin I Hi Sens Absolute Change 3 EKG/XRAY/CT/US/VASC/MRI EKG : Additional Comment EKG interpreted by myself shows time of 1804, rate 59, sinus bradycardia, left axis deviation, no ST changes Chest X-Ray : Additional Comments Exam: CHEST,SINGLE VIEW CHEST RADIOGRAPH INDICATION: CP TECHNIQUE: DI CHEST,SINGLE VIEW Comparison: None FINDINGS: The cardiac silhouette is unremarkable. The lungs demonstrate no pulmonary airspace consolidation. The pulmonary vasculature is unremarkable. There is no pleural effusion. There is no pneumothorax. Aortic atherosclerotic disease. IMPRESSION: No pulmonary airspace consolidation. Medical Decision Making Additional information obtaine: old records Findings Patient presents to the emergency room with chest pain that has per HPI. No current symptoms and he had not believe he is suffering from pulmonary embolism or acute aortic pathology. Pain that has atypical in nature. Discussed risks benefits alternatives in the fact that has an elevated heart score. Utilizing shared decision-making patient would prefer to follow up on outpatient basis with a belt loop machine operator. ER precautions discussed. Heart Score: 4 Differential Dx:Considerations: Include: angina, aortic dissection, chest wall pain, cholelithiasis, CHF, costochondritis, esophageal reflux/spasm, gastritis, herpes zoster, myocardial infarction, pericarditis, pleuritis, pancreatitis, pneumonia, pneumothorax, pulmonary embolus, other Departure Disposition: 01 HOME / SELF CARE / HOMELESS Impression: Primary Impression: Chest pain Condition: Stable Discharge Instructions: Nonspecific Chest Pain, Adult Additional Instructions: Call your belt loop machine operator tomorrow for follow up. Return for worsening of symptoms Referrals: NO PRIMARY CARE PROVIDER (PCP) Signature Scribe Signature: No scribe Attestation: The note accurately reflects work and decisions made by me.Lopez Dyer MD 03/20/25 20:45 LOPEZ DYER MD Mar 20, 2025 19:53
[2025-03-20 20:48] VITALS: BP 124/69; PULSE 64; RESP 11; TEMP 98.2; O2SAT 99
== END 2025-03-20 21:00 | disposition home or self-care (01) ==
LOC: ER 17:54
DX: R07.9 Chest pain, unspecified (principal); I25.10 Atherosclerotic heart disease of native coronary artery without angina pectoris; I48.91 Unspecified atrial fibrillation; Z95.5 Presence of coronary angioplasty implant and graft; Z79.82 Long term (current) use of aspirin; Z79.899 Other long term (current) drug therapy
CPT/HCPCS: 36415; 71045; 80048; 83880; 84484; 85025; 93005; 99285